=== PATIENT | male | born 1955 ===

== ENCOUNTER 2023-10-25 08:58 | Outpatient (CLI) | payer MEDICARE, SELFPAY ==
--- NOTE | ~2023-10-25 | MR_ITS ---
EXAMINATION: MR elbow RT wo con DATE: 10/25/2023 09:55 INDICATION: Right elbow pain. Suspect biceps tendon tear. TECHNIQUE: Magnetic resonance imaging (MRI) of the right elbow was performed without intravenous cont rast. Sequences included coronal, axial, and sagittal PD-weighted FS FSE and coronal, axial, and sagi ttal PD-weighted FSE. COMPARISON: None FINDINGS: Osseous/other: Normal alignment. No fracture or pathologic marrow replacing process. There is at least moderate oste oarthritis at the radiocapitellar articulation with diffuse cartilage loss which involves at least 50 % of the cartilage thickness along both sides of the joint space. Mild osteoarthritis with mild nonun iform cartilage loss at the ulnotrochlear articulation. Moderate osteoarthritis at the proximal radio ulnar articulation with small region of deep chondral ulceration with underlying subarticular edema-l jose and cystlike changes at the articular surface at the coronoid process of the proximal ulna. Tendons: Triceps tendon is normal. There is mild tendinopathy without tears of the distal biceps brachii and b rachialis tendons. Mild tendinopathy without tear of the common flexor tendon wad. Moderate tendinop athy and partial-thickness tear at the lateral epicondylar origin of the common extensor tendon wad. The tear involves approximately 20% of the surface of the footplate. Ligaments: The medial collateral ligament complex is normal. And mild partial tears of the lateral collateral li gament and proximal lateral ulnar collateral ligament. There is mild cystic change underlying the hum eral insertion of the lateral ulnar collateral ligament. Cubital tunnel: Cubital tunnel is unremarkable with normal signal and caliber of the ulnar nerve. Fluid: Physiologic amount of fluid the elbow joint. IMPRESSION: 1. Moderate tendinopathy and small partial-thickness tear at the lateral epicondylar origin of the co mmon extensor tendon wad. 2. Mild tendinopathy without tears at the medial epicondylar origin of the common flexor tendon wad a nd at the proximal radial and ulnar insertions of the biceps brachii and brachialis tendons respectiv umang. 3. Mild partial tears of the lateral collateral and lateral ulnar collateral ligaments. 4. 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 Reviewed, dictated and finalized at location B. IMPRESSION: 1. Moderate tendinopathy and small partial-thickness tear at the lateral epicon dylar origin of the common extensor tendon wad. 2. Mild tendinopathy without tears at the medial epicondylar origin of the comm on flexor tendon wad and at the proximal radial and ulnar insertions of the bic eps brachii and brachialis tendons respectively. 3. Mild partial tears of the lateral collateral and lateral ulnar collateral li gaments. 4. 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
== END 2023-10-25 08:59 ==
LOC: GOSHIMG 09:01
PROVIDERS: PCP Family Medicine; Visit Provider Physician Assistant
DX: M19.021 Primary osteoarthritis, right elbow (principal); S53.441A Ulnar collateral ligament sprain of right elbow, initial encounter; X58.XXXA Exposure to other specified factors, initial encounter
CPT/HCPCS: 73221